=== PATIENT | female | born 1980 | race Two or more races ===

== ENCOUNTER 2018-03-24 18:12 | Emergency (ER) | payer MEDICAID ==
[~2018-03-24] VITALS: Ht 162.6 cm; Wt 93.9 kg
[2018-03-24 18:25] VITALS: Ht 162.6 cm; Wt 93.9 kg
[2018-03-24 20:32] VITALS: BP 136/74
== END 2018-03-24 20:32 | disposition home or self-care (01) ==
LOC: ED 18:12
DX: S91.301A Unspecified open wound, right foot, initial encounter (principal); X58.XXXA Exposure to other specified factors, initial encounter; Y93.89 Activity, other specified; Y92.89 Other specified places as the place of occurrence of the external cause; Y99.8 Other external cause status